=== PATIENT | female | born 1950 | race Caucasian/White ===

== ENCOUNTER 2016-12-25 17:55 | Emergency (ER) | payer MEDICARE, MEDICAID ==
[~2016-12-25] VITALS: Ht 162.6 cm; Wt 80.0 kg
[2016-12-25] MEDS ORDERED: PLEASE ENTER ALLERGIES MC SCH ×2 (18:30)
[2016-12-25] MEDS ORDERED: HYDROmorphone 1 MG/ML, 1ML IV ONE (18:30)
[2016-12-25] MEDS ORDERED: SPIR1TAB3 PO (18:39)
[2016-12-25] MEDS ORDERED: LISI5TAB7 PO (18:39)
[2016-12-25] MEDS ORDERED: GABA300C10 PO (18:39)
[2016-12-25] MEDS ORDERED: METH-356 PO (18:39)
[2016-12-25] MEDS ORDERED: HYDROmorphone 1 MG/ML, 1ML ONE (19:33)
[2016-12-25] MEDS ORDERED: HYDROmorphone 1 MG/ML, 1ML IM ONE (20:00)
[2016-12-25] MEDS ORDERED: OXYcodone/APAP 5/325MG TABLET PO ONE (20:30)
[2016-12-25] MEDS ORDERED: OXYcodone/APAP 5/325MG TABLET ONE (20:30)
[2016-12-25 20:49] VITALS: BP 125/84
== END 2016-12-25 21:27 | disposition home or self-care (01) ==
LOC: EDSEX → ED 20:48
DX: S42.291A Other displaced fracture of upper end of right humerus, initial encounter for closed fracture (principal); S22.089A Unspecified fracture of T11-T12 vertebra, initial encounter for closed fracture; S20.211A Contusion of right front wall of thorax, initial encounter; I10 Essential (primary) hypertension; W19.XXXA Unspecified fall, initial encounter; Y93.89 Activity, other specified; Y92.410 Unspecified street and highway as the place of occurrence of the external cause; Y99.9 Unspecified external cause status
CPT/HCPCS: 71250; 73030; 96372; 96374; 99284; J1170

== ENCOUNTER 2016-12-28 20:27 | Inpatient (IN) | payer MEDICARE, MEDICAID ==
[~2016-12-28] VITALS: Ht 152.4 cm; Wt 81.0 kg
[~2016-12-28 20:27] MED LIST: GABA300C10 PO; LISI5TAB7 PO; METH-356 PO; SPIR1TAB3 PO
[2016-12-28] MEDS ORDERED: SODIUM CHLORIDE 0.9% 1,000ML IVBOLUS ONE (21:00)
[2016-12-28] MEDS ORDERED: ONDANSETRON ODT 4 MG PO ONE (21:00)
[2016-12-28] MEDS ORDERED: morphine SULFATE 10 MG/ML, 1ML ONE ×2 (21:03→21:49)
[2016-12-28] MEDS ORDERED: ONDANSETRON 2MG/ML, 2ML ONE (21:03)
[2016-12-28] MEDS: MORPHINE SULFATE 4 MG/ML, 1ML IVPush PRN ×2 (21:28→23:26)
[2016-12-28 21:59] LABS: HEMATOCRIT 26.7 % (34.6-47.8); WHITE BLOOD COUNT 8.9 x10^3/uL (3.4-10)
[2016-12-28 22:08] LABS: ASPARTATE AMINO TRANSFERASE 23 U/L (15-37); BLOOD UREA NITROGEN 51 mg/dL (7-18)
[2016-12-28] MEDS ORDERED: NS + 20MEQ KCL 1,000 ML IV SCH (22:30)
[2016-12-28] MEDS ORDERED: HYDROcodone/APAP 5/325 TABLET PO PRN (22:30)
[2016-12-28] MEDS ORDERED: ZOLPIDEM 5MG TABLET PO PRN (22:30)
[2016-12-28] MEDS ORDERED: GUAIFENESIN/DM 200-20MG, 10ML UDC PO PRN (22:30)
[2016-12-28] MEDS ORDERED: ONDANSETRON ODT 4 MG PO PRN (22:30)
[2016-12-28 23:10] VITALS: BP 101/70
[2016-12-28] MEDS: NICOTINE 14MG/24 HR PATCH.TD24 TD SCH (23:30)
[2016-12-28] MEDS: CEFTRIAXONE PMX 2GM/50ML 50 ML IV SCH (23:44)
[2016-12-28] MEDS ORDERED: FLU VACC QS2017-18 (36MOS+) UP/PF 0.5 ML IM-VACC ONE (23:45)
[2016-12-29] MEDS: morphine SULFATE 10 MG/ML, 1ML IVPush PRN ×6 (01:35→22:35)
[2016-12-29 02:36] VITALS: BP 111/69
[2016-12-29 06:05] LABS: HEMATOCRIT 25.4 % (34.6-47.8); HEMOGLOBIN 8.4 g/dL (11.7-16.4); WHITE BLOOD COUNT 8.7 x10^3/uL (3.4-10)
[2016-12-29 06:06] LABS: ASPARTATE AMINO TRANSFERASE 20 U/L (15-37); BLOOD UREA NITROGEN 39 mg/dL (7-18)
[2016-12-29 07:28] VITALS: BP 105/68
[2016-12-29] MEDS: GABAPENTIN 300 MG CAPSULE PO SCH (07:31)
[2016-12-29] MEDS ORDERED: NEOSPORIN OINT, 15GM ONE (13:31)
[2016-12-29 14:00] VITALS: BP 107/66
[2016-12-29] MEDS ORDERED: MIDAZOLAM 1 MG/ML, 2ML ONE (14:07)
[2016-12-29] MEDS ORDERED: PROPOFOL 10 MG/ML, 20ML ONE (14:07)
[2016-12-29] MEDS ORDERED: ROCURONIUM 10 MG/ML,10ML ONE (14:07)
[2016-12-29] MEDS ORDERED: FENTANYL PF 100 MCG/2ML ONE ×2 (14:07)
[2016-12-29] MEDS ORDERED: SUCCINYLCHOLINE 20 MG/ML, 10ML ONE (14:07)
[2016-12-29] MEDS ORDERED: DEXAMETHASONE 4 MG/ML, 1ML ONE ×2 (14:10→15:13)
[2016-12-29] MEDS ORDERED: ONDANSETRON 2MG/ML, 2ML ONE ×2 (14:10→15:13)
[2016-12-29] MEDS ORDERED: CEFAZOLIN 1,000 MG ONE (14:11)
[2016-12-29] MEDS ORDERED: HYDROmorphone 1 MG/ML, 1ML IV PRN (15:00)
[2016-12-29] MEDS ORDERED: LABETALOL 5MG/ML, 20ML IV PRN (15:00)
[2016-12-29] MEDS ORDERED: FENTANYL PF 100 MCG/2ML IV PRN (15:00)
[2016-12-29] MEDS ORDERED: MEPERIDINE/PF 25MG/0.5ML IVPush PRN (15:00)
[2016-12-29] MEDS ORDERED: ALBUTEROL SULFATE 2.5 MG/3 ML NPPB PRN (15:00)
[2016-12-29] MEDS ORDERED: hydrALAzine 20 MG/ML, 1ML IV PRN (15:00)
[2016-12-29] MEDS ORDERED: OXYcodone 5 MG/5 ML ORAL.SOL UDC PO PRN (15:00)
[2016-12-29] MEDS ORDERED: MIDAZOLAM 1 MG/ML, 2ML IV PRN (15:00)
[2016-12-29] MEDS ORDERED: PROMETHAZINE 25 MG/ML, 1ML IV PRN (15:00)
[2016-12-29] MEDS ORDERED: ONDANSETRON 2MG/ML, 2ML IVPush PRN (15:00)
[2016-12-29] MEDS ORDERED: ALBUTEROL/IPRATROPIUM 2.5MG/0.5MG, 3 ML ONE (15:38)
[2016-12-29] MEDS ORDERED: ANAS1TAB PO (18:19)
[2016-12-29] MEDS ORDERED: ANASTROZOLE 1 MG TABLET PO SCH (18:30)
[2016-12-29] MEDS: ANASTROZOLE 1 MG TABLET HOMEMEDPO SCH (19:00)
[2016-12-29] MEDS: ALBUTEROL/IPRATROPIUM 2.5MG/0.5MG, 3 ML NPPB SCH ×2 (19:42→21:59)
[2016-12-29] MEDS: METHADONE 10 MG TABLET PO SCH (19:56)
[2016-12-29] MEDS ORDERED: NOREPINEPHRINE 4 MG in SODIUM CHLORIDE 0.9% 246 ML IV PRN (20:00)
[2016-12-29] MEDS: ENOXAPARIN 40 MG/0.4 ML SQ SCH (21:00)
[2016-12-29] MEDS: LACTULOSE 10 GM/15 ML UDC PO SCH (21:00)
[2016-12-29] MEDS: LISINOPRIL 5 MG TABLET PO SCH (21:18)
[2016-12-29] MEDS: CEFAZOLIN PMX 1GM/50ML 50 ML IVPB SCH (22:22)
[2016-12-29] MEDS: NICOTINE 14MG/24 HR PATCH.TD24 TD SCH (23:30)
[2016-12-29] MEDS: CEFTRIAXONE PMX 2GM/50ML 50 ML IV SCH (23:34)
[2016-12-30] MEDS: morphine SULFATE 10 MG/ML, 1ML IVPush PRN ×6 (01:23→23:31)
[2016-12-30] MEDS: ALBUTEROL/IPRATROPIUM 2.5MG/0.5MG, 3 ML NPPB SCH ×4 (02:22→19:46)
[2016-12-30 04:00] VITALS: BP 102/52
[2016-12-30] MEDS: CEFAZOLIN PMX 1GM/50ML 50 ML IVPB SCH (06:51)
[2016-12-30] MEDS ORDERED: ANASTROZOLE 1 MG TABLET HOMEMEDPO SCH (09:00)
[2016-12-30] MEDS: ANASTROZOLE 1 MG TABLET HOMEMEDPO SCH (09:00)
[2016-12-30] MEDS: LACTULOSE 10 GM/15 ML UDC PO SCH ×2 (09:00→20:37)
[2016-12-30] MEDS: GABAPENTIN 300 MG CAPSULE PO SCH (09:24)
[2016-12-30] MEDS: LISINOPRIL 5 MG TABLET PO SCH ×2 (09:24→20:37)
[2016-12-30] MEDS: METHADONE 10 MG TABLET PO SCH (09:24)
[2016-12-30] MEDS: ENOXAPARIN 40 MG/0.4 ML SQ SCH (15:19)
[2016-12-30 18:51] VITALS: BP 104/68
[2016-12-30] MEDS: CEFTRIAXONE PMX 2GM/50ML 50 ML IV SCH (23:30)
[2016-12-30] MEDS: NICOTINE 14MG/24 HR PATCH.TD24 TD SCH (23:30)
[2016-12-31 02:06] VITALS: BP 100/64
[2016-12-31] MEDS: morphine SULFATE 10 MG/ML, 1ML IVPush PRN ×5 (03:45→21:07)
[2016-12-31 04:50] LABS: HEMATOCRIT 23.6 % (34.6-47.8); HEMOGLOBIN 7.8 g/dL (11.7-16.4); WHITE BLOOD COUNT 7.2 x10^3/uL (3.4-10)
[2016-12-31 04:58] LABS: BLOOD UREA NITROGEN 23 mg/dL (7-18)
[2016-12-31 05:02] LABS: ASPARTATE AMINO TRANSFERASE 12 U/L (15-37)
[2016-12-31 07:19] VITALS: BP 122/89
[2016-12-31] MEDS: LACTULOSE 10 GM/15 ML UDC PO SCH ×2 (07:47→21:12)
[2016-12-31] MEDS: GABAPENTIN 300 MG CAPSULE PO SCH ×2 (07:47→09:00)
[2016-12-31] MEDS: METHADONE 10 MG TABLET PO SCH (07:51)
[2016-12-31] MEDS: ALBUTEROL/IPRATROPIUM 2.5MG/0.5MG, 3 ML NPPB SCH ×4 (08:20→20:25)
[2016-12-31] MEDS: LISINOPRIL 5 MG TABLET PO SCH ×2 (09:00→21:07)
[2016-12-31] MEDS: ANASTROZOLE 1 MG TABLET HOMEMEDPO SCH (09:00)
[2016-12-31] MEDS ORDERED: BUPIVACAINE/PF 0.5% ONE (12:00)
[2016-12-31] MEDS ORDERED: EPINEPHRINE 1 MG/ML, 1ML ONE (12:00)
[2016-12-31] MEDS ORDERED: MIDAZOLAM 1 MG/ML, 2ML ONE (12:03)
[2016-12-31] MEDS ORDERED: KETAMINE 10 MG/ML, 20ML ONE (12:03)
[2016-12-31] MEDS ORDERED: FENTANYL PF 250 MCG/5ML ONE ×2 (12:04→13:15)
[2016-12-31] MEDS ORDERED: PROPOFOL 10 MG/ML, 20ML ONE (12:05)
[2016-12-31] MEDS ORDERED: SUCCINYLCHOLINE 20 MG/ML, 10ML ONE (12:05)
[2016-12-31] MEDS ORDERED: ONDANSETRON 2MG/ML, 2ML ONE (12:05)
[2016-12-31] MEDS ORDERED: NEOSTIGMINE 1 MG/ML, 10ML ONE (12:05)
[2016-12-31] MEDS ORDERED: DEXAMETHASONE 4 MG/ML, 1ML ONE (12:05)
[2016-12-31] MEDS ORDERED: CEFAZOLIN 1,000 MG ONE (12:05)
[2016-12-31] MEDS ORDERED: ROCURONIUM 10 MG/ML,10ML ONE (12:05)
[2016-12-31] MEDS ORDERED: GLYCOPYRROLATE 0.2MG/1ML, 5ML ONE (12:05)
[2016-12-31] MEDS ORDERED: ACETAMINOPHEN 325 MG TABLET PO PRN (12:30)
[2016-12-31] MEDS ORDERED: MEPERIDINE/PF 25MG/0.5ML IVPush PRN (12:30)
[2016-12-31] MEDS ORDERED: ONDANSETRON 2MG/ML, 2ML IVPush PRN (12:30)
[2016-12-31] MEDS ORDERED: ALBUTEROL/IPRATROPIUM 2.5MG/0.5MG, 3 ML NPPB PRN (12:30)
[2016-12-31] MEDS ORDERED: FENTANYL PF 100 MCG/2ML IV PRN (12:30)
[2016-12-31] MEDS ORDERED: OXYcodone 5 MG/5 ML ORAL.SOL UDC PO PRN (12:30)
[2016-12-31] MEDS ORDERED: PHENYLEPHRINE 10 MG/ML ONE (12:36)
[2016-12-31] MEDS ORDERED: VASOPRESSIN 20 UNIT/ML, 1ML ONE (12:36)
[2016-12-31] MEDS ORDERED: CLINDAMYCIN 150 MG/ML, 6ML ONE (13:02)
[2016-12-31] MEDS ORDERED: HYDROmorphone 1 MG/ML, 1ML ONE ×2 (15:07→15:35)
[2016-12-31] MEDS: HYDROmorphone 1 MG/ML, 1ML IV PRN ×6 (15:10→15:45)
[2016-12-31] MEDS ORDERED: OXYcodone 5 MG/5 ML ORAL.SOL UDC ONE (15:31)
[2016-12-31] MEDS ORDERED: OXYcodone/APAP 5/325MG TABLET ONE (20:29)
[2016-12-31] MEDS: OXYcodone/APAP 5/325MG TABLET PO PRN (20:31)
[2016-12-31] MEDS: ENOXAPARIN 40 MG/0.4 ML SQ SCH (21:13)
[2016-12-31] MEDS: CEFTRIAXONE 2 GM in DEXTROSE 5% 50 ML IV SCH (23:42)
[2016-12-31] MEDS: NICOTINE 14MG/24 HR PATCH.TD24 TD SCH (23:43)
[2017-01-01] MEDS: OXYcodone/APAP 5/325MG TABLET PO PRN ×6 (00:32→21:25)
[2017-01-01] MEDS: morphine SULFATE 10 MG/ML, 1ML IVPush PRN ×6 (01:01→22:36)
[2017-01-01 04:00] VITALS: BP 99/58
[2017-01-01] MEDS: ALBUTEROL/IPRATROPIUM 2.5MG/0.5MG, 3 ML NPPB SCH ×2 (06:00→11:00)
[2017-01-01] MEDS: LACTULOSE 10 GM/15 ML UDC PO SCH ×4 (09:00→21:00)
[2017-01-01] MEDS: LISINOPRIL 5 MG TABLET PO SCH ×2 (09:07→22:55)
[2017-01-01] MEDS: GABAPENTIN 300 MG CAPSULE PO SCH (09:07)
[2017-01-01] MEDS: METHADONE 10 MG TABLET PO SCH (09:07)
[2017-01-01] MEDS: ANASTROZOLE 1 MG TABLET PO SCH (10:23)
[2017-01-01 12:23] VITALS: BP 91/43
[2017-01-01 13:28] VITALS: BP 105/59
[2017-01-01] MEDS: POLYETHYLENE GLYCOL 17 GM PACKET PO PRN (17:21)
[2017-01-01] MEDS ORDERED: MAGNESIUM HYDROXIDE 8%, 30ML UDC PO PRN (17:30)
[2017-01-01] MEDS ORDERED: BISACODYL 10 MG SUPP PR PRN (17:30)
[2017-01-01] MEDS ORDERED: ALBUTEROL/IPRATROPIUM 2.5MG/0.5MG, 3 ML NPPB PRN (19:00)
[2017-01-01 19:51] VITALS: BP 109/88
[2017-01-01] MEDS: ENOXAPARIN 40 MG/0.4 ML SQ SCH (21:25)
[2017-01-01] MEDS: NICOTINE 14MG/24 HR PATCH.TD24 TD SCH (22:56)
[2017-01-01] MEDS: CEFTRIAXONE 2 GM in DEXTROSE 5% 50 ML IV SCH (23:11)
[2017-01-02] VITALS (9 sets, daily range): BP systolic 91–121; BP diastolic 56–77
[2017-01-02] MEDS: OXYcodone/APAP 5/325MG TABLET PO PRN ×2 (01:31→05:34)
[2017-01-02] MEDS: morphine SULFATE 10 MG/ML, 1ML IVPush PRN ×4 (02:36→21:39)
[2017-01-02] MEDS: LACTULOSE 10 GM/15 ML UDC PO SCH ×2 (05:34→17:00)
[2017-01-02 05:39] LABS: BLOOD UREA NITROGEN 19 mg/dL (7-18)
[2017-01-02 06:20] LABS: WHITE BLOOD COUNT 7.4 x10^3/uL (3.4-10)
[2017-01-02 06:25] LABS: HEMOGLOBIN 6.5 g/dL (11.7-16.4)
[2017-01-02 06:26] LABS: HEMATOCRIT 19.4 % (34.6-47.8)
[2017-01-02 07:16] LABS: DIFF TOTAL CELLS COUNTED 100 CELL DIFF
[2017-01-02 07:17] LABS: VERIFY COUNTS? YES
[2017-01-02 07:19] LABS: POLYCHROMASIA 1+
[2017-01-02 07:20] LABS: OVALOCYTES 1+
[2017-01-02 07:22] LABS: ANISOCYTOSIS 1+
[2017-01-02] MEDS: OXYcodone/APAP 10/325MG TABLET PO PRN ×4 (08:45→22:12)
[2017-01-02] MEDS: ANASTROZOLE 1 MG TABLET PO SCH (09:00)
[2017-01-02] MEDS: METHADONE 10 MG TABLET PO SCH (09:27)
[2017-01-02] MEDS: GABAPENTIN 300 MG CAPSULE PO SCH (09:27)
[2017-01-02] MEDS: ENOXAPARIN 40 MG/0.4 ML SQ SCH (21:39)
[2017-01-02] MEDS: NICOTINE 14MG/24 HR PATCH.TD24 TD SCH (23:39)
[2017-01-02] MEDS: CEFTRIAXONE 2 GM in DEXTROSE 5% 50 ML IV SCH (23:40)
[2017-01-03] MEDS: morphine SULFATE 10 MG/ML, 1ML IVPush PRN ×4 (01:47→19:37)
[2017-01-03 02:01] VITALS: BP 105/61
[2017-01-03] MEDS: OXYcodone/APAP 10/325MG TABLET PO PRN ×4 (04:22→22:59)
[2017-01-03 05:29] LABS: HEMOGLOBIN 8.5 g/dL (11.7-16.4)
[2017-01-03] MEDS ORDERED: FLU VACC QS2017-18 (36MOS+) UP/PF 0.5 ML IM-VACC ONE (06:00)
[2017-01-03 06:44] VITALS: BP 125/84
[2017-01-03] MEDS: METHADONE 10 MG TABLET PO SCH (08:16)
[2017-01-03] MEDS: GABAPENTIN 300 MG CAPSULE PO SCH (08:17)
[2017-01-03] MEDS: LACTULOSE 10 GM/15 ML UDC PO SCH ×2 (08:17→21:00)
[2017-01-03] MEDS: ANASTROZOLE 1 MG TABLET PO SCH (08:19)
[2017-01-03 14:45] LABS: TOTAL IRON BINDING CAPACITY 249 mcg/dL (250-450)
[2017-01-03 15:17] VITALS: BP 142/87
[2017-01-03 18:40] VITALS: BP 101/68
[2017-01-03] MEDS: ENOXAPARIN 40 MG/0.4 ML SQ SCH (21:00)
[2017-01-03] MEDS: NICOTINE 14MG/24 HR PATCH.TD24 TD SCH (22:58)
[2017-01-03] MEDS: CEFTRIAXONE 2 GM in DEXTROSE 5% 50 ML IV SCH (23:01)
[2017-01-04] MEDS: morphine SULFATE 10 MG/ML, 1ML IVPush PRN ×6 (00:06→20:52)
[2017-01-04 02:10] VITALS: BP 104/67
[2017-01-04] MEDS: OXYcodone/APAP 10/325MG TABLET PO PRN ×4 (05:08→23:12)
[2017-01-04 05:27] LABS: HEMATOCRIT 24.4 % (34.6-47.8); HEMOGLOBIN 8.3 g/dL (11.7-16.4); WHITE BLOOD COUNT 6.2 x10^3/uL (3.4-10)
[2017-01-04 07:00] VITALS: BP 115/73
[2017-01-04] MEDS: GABAPENTIN 300 MG CAPSULE PO SCH (08:04)
[2017-01-04] MEDS: METHADONE 10 MG TABLET PO SCH (08:06)
[2017-01-04] MEDS: ANASTROZOLE 1 MG TABLET PO SCH (08:06)
[2017-01-04] MEDS: LACTULOSE 10 GM/15 ML UDC PO SCH ×2 (08:06→20:52)
[2017-01-04] MEDS ORDERED: EPINEPHRINE 1 MG/ML, 1ML IM PRN (14:00)
[2017-01-04] MEDS ORDERED: IRON DEXTRAN IV PER PHARMACY IV PRN (14:00)
[2017-01-04] MEDS ORDERED: SODIUM CHLORIDE 0.9% IV ONE (14:30)
[2017-01-04] MEDS ORDERED: IRON DEXTRAN COMPLEX 25 MG in SODIUM CHLORIDE 0.9% 50 ML IV ONE (14:30)
[2017-01-04] MEDS ORDERED: IRON DEXTRAN COMPLEX IV ONE (14:30)
[2017-01-04 14:45] VITALS: BP 108/64
[2017-01-04 15:57] VITALS: BP 115/73
[2017-01-04] MEDS ORDERED: IRON DEXTRAN COMPLEX 1,250 MG in SODIUM CHLORIDE 0.9% 250 ML IV ONE (16:00)
[2017-01-04] MEDS: ENOXAPARIN 40 MG/0.4 ML SQ SCH (20:52)
[2017-01-04 21:07] VITALS: BP 112/73
[2017-01-04] MEDS: NICOTINE 14MG/24 HR PATCH.TD24 TD SCH (22:56)
[2017-01-04] MEDS: CEFTRIAXONE 2 GM in DEXTROSE 5% 50 ML IV SCH (22:56)
[2017-01-05] MEDS: morphine SULFATE 10 MG/ML, 1ML IVPush PRN ×4 (00:32→12:46)
[2017-01-05 03:05] VITALS: BP 108/72
[2017-01-05] MEDS: OXYcodone/APAP 10/325MG TABLET PO PRN ×2 (05:11→11:24)
[2017-01-05] MEDS: LACTULOSE 10 GM/15 ML UDC PO SCH (07:53)
[2017-01-05] MEDS: ANASTROZOLE 1 MG TABLET PO SCH (07:58)
[2017-01-05] MEDS: GABAPENTIN 300 MG CAPSULE PO SCH (07:58)
[2017-01-05] MEDS: METHADONE 10 MG TABLET PO SCH (07:59)
[2017-01-05] MEDS: POLYETHYLENE GLYCOL 17 GM PACKET PO PRN (07:59)
[2017-01-05 08:05] VITALS: BP 110/72
[2017-01-05 15:15] VITALS: BP 132/88
[2017-01-05] MEDS ORDERED: METH-356 PO ×2 (16:13→16:16)
== END 2017-01-05 16:55 | DRG 480 ==
LOC: EDSEX 20:27 → ED 21:16 → EDIP 21:52 → 4NOR 22:43 → CCU 12-29 16:27 → 4NOR 12-30 10:29 → CCU 12-31 16:07 → 4NOR 01-01 11:57
PROVIDERS: ADMIT Internal Medicine; ATTEND Internal Medicine
PROC: 5A09357 Assistance with Respiratory Ventilation, Less than 24 Consecutive Hours, Continuous Positive Airway Pressure (ICD-10-PCS; 2016-12-29)
PROC: 0QH634Z Insertion of Internal Fixation Device into Right Upper Femur, Percutaneous Approach (ICD-10-PCS; principal; 2016-12-29 11:30)
PROC: 0RRJ00Z Replacement of Right Shoulder Joint with Reverse Ball and Socket Synthetic Substitute, Open Approach (ICD-10-PCS; 2016-12-31)
PROC: 0PSF04Z Reposition Right Humeral Shaft with Internal Fixation Device, Open Approach (ICD-10-PCS; 2016-12-31)
PROC: 5A09357 Assistance with Respiratory Ventilation, Less than 24 Consecutive Hours, Continuous Positive Airway Pressure (ICD-10-PCS; 2016-12-31)
PROC: 02HV33Z Insertion of Infusion Device into Superior Vena Cava, Percutaneous Approach (ICD-10-PCS; 2017-01-02)
PROC: B548ZZA Ultrasonography of Superior Vena Cava, Guidance (ICD-10-PCS; 2017-01-02)
PROC: 30233N1 Transfusion of Nonautologous Red Blood Cells into Peripheral Vein, Percutaneous Approach (ICD-10-PCS; 2017-01-02)
DX: S72.091A Other fracture of head and neck of right femur, initial encounter for closed fracture (principal); N17.0 Acute kidney failure with tubular necrosis; J96.21 Acute and chronic respiratory failure with hypoxia; J18.1 Lobar pneumonia, unspecified organism; E44.0 Moderate protein-calorie malnutrition; S22.089A Unspecified fracture of T11-T12 vertebra, initial encounter for closed fracture; Z99.81 Dependence on supplemental oxygen; F11.20 Opioid dependence, uncomplicated; S42.291A Other displaced fracture of upper end of right humerus, initial encounter for closed fracture; J98.11 Atelectasis; S22.39XA Fracture of one rib, unspecified side, initial encounter for closed fracture; F17.200 Nicotine dependence, unspecified, uncomplicated; D50.0 Iron deficiency anemia secondary to blood loss (chronic); G89.29 Other chronic pain; I10 Essential (primary) hypertension; J44.9 Chronic obstructive pulmonary disease, unspecified; M19.90 Unspecified osteoarthritis, unspecified site; W01.198A Fall on same level from slipping, tripping and stumbling with subsequent striking against other object, initial encounter; W01.0XXA Fall on same level from slipping, tripping and stumbling without subsequent striking against object, initial encounter; Z51.5 Encounter for palliative care; Z68.34 Body mass index [BMI] 34.0-34.9, adult; Z23 Encounter for immunization; Y93.89 Activity, other specified; Y92.098 Other place in other non-institutional residence as the place of occurrence of the external cause; Y99.8 Other external cause status
CPT/HCPCS: 36415; 36569; 71010; 76000; 76937; 77001; 80048; 80053; 83540; 83550; 83735; 84443; 85014; 85018; 85025; 85610; 85730; 86850; 86900; 86923; 87081; 90686; 93005; 94640; 94660; 96360; C1713; C1776; J0171; J0690; J0696; J1100; J1170; J1650; J1750; J2250; J2405; J2704; J2710; J3010; J3480; J3490; J7620; C1751; C1769; J0330; J2270; J2370; J7030; J7050; P9016

== ENCOUNTER 2017-09-11 09:19 | Emergency (ER) | payer MEDICARE, MEDICAID ==
[~2017-09-11] VITALS: Ht 162.6 cm; Wt 67.8 kg
[~2017-09-11 09:19] MED LIST changes: +ANAS1TAB PO
[2017-09-11] MEDS ORDERED: NALOXONE 0.4 MG/ML, 1ML IVPush PRN (09:30)
[2017-09-11 09:44] LABS: BASOPHILS # (AUTO) 0.06 x10^3/uL (0-0.1); BASOPHILS % (AUTO) 1 % (0-1); EOSINOPHILS # (AUTO) 0.17 x10^3/uL (0-0.4); EOSINOPHILS % (AUTO) 2 % (1-7); LYMPHOCYTES % (AUTO) 21 % (22-44); MD NO; MEAN CORPUSCULAR HEMOGLOBIN 28.9 pg (27.0-34.8); MEAN CORPUSCULAR HGB CONC 32.7 g/dL (32.4-35.8); MEAN CORPUSCULAR VOLUME 88.5 fL (80-100); MEAN PLATELET VOLUME 8.6 fL (7.4-10.4); MONOCYTES # (AUTO) 0.58 x10^3/uL (0.2-0.8); MONOCYTES % (AUTO) 5 % (2-9); NEUTROPHILS # (AUTO) 7.98 x10^3/uL (1.8-6.8); NEUTROPHILS % (AUTO) 72 % (42-75); PLATELET COUNT 264 x10^3/uL (130-400); RED BLOOD COUNT 4.45 x10^6/uL (3.82-5.3); RED CELL DISTRIBUTION WIDTH 15.1 % (9.6-15.2)
[2017-09-11 09:56] LABS: ALANINE AMINOTRANSFERASE 38 U/L (12-78); ALBUMIN 3.4 g/dL (3.4-5.0); ANION GAP 15 mmol/L (5-15); CALCIUM 8.7 mg/dL (8.5-10.1); CHLORIDE 113 mmol/L (98-107); CREATININE 0.78 mg/dL (0.55-1.02)
[2017-09-11] MEDS ORDERED: FURO20TA3 PO (09:56)
[2017-09-11 09:58] LABS: ALKALINE PHOSPHATASE 80 U/L (45-117); BILIRUBIN,TOTAL 0.1 mg/dL (0.2-1.0); TOTAL PROTEIN 6.9 g/dL (6.4-8.2)
[2017-09-11] MEDS ORDERED: PLEASE ENTER HEIGHT AND WEIGHT MC SCH (10:00)
[2017-09-11] MEDS ORDERED: SODIUM CHLORIDE 0.9% 1,000ML IVBOLUS ONE (10:30)
[2017-09-11 11:45] LABS: AMPHETAMINE SCREEN, URINE Negative (Negative); BARBITURATE SCREEN, URINE Negative (Negative); BENZODIAZEPINE SCREEN, URINE Positive (Negative); CANNABINOID SCREEN, URINE Negative (Negative); COCAINE SCREEN, URINE Negative (Negative); METHADONE SCREEN, URINE Negative (Negative); OPIATE SCREEN, URINE Positive (Negative)
[2017-09-11 12:32] LABS: MICROSCOPIC NOT IND
[2017-09-11 12:36] LABS: CULTURE INDICATED? NO
[2017-09-11 13:42] VITALS: BP 105/72
== END 2017-09-11 14:11 | disposition home or self-care (01) ==
LOC: ED 10:45
DX: T40.601A Poisoning by unspecified narcotics, accidental (unintentional), initial encounter (principal); F10.129 Alcohol abuse with intoxication, unspecified; E86.0 Dehydration; I10 Essential (primary) hypertension; J44.9 Chronic obstructive pulmonary disease, unspecified; K21.9 Gastro-esophageal reflux disease without esophagitis; Z85.3 Personal history of malignant neoplasm of breast; F17.210 Nicotine dependence, cigarettes, uncomplicated; Y92.89 Other specified places as the place of occurrence of the external cause
CPT/HCPCS: 36415; 70450; 71045; 80053; 80307; 81003; 85025; 93005; 96360; 96361; 99285; J7030